=== PATIENT | female | born 1985 | race Caucasian/White ===

== ENCOUNTER 2017-06-01 09:53 | Emergency (ER) | payer BC ==
[~2017-06-01] VITALS: Ht 160 cm; Wt 130.5 kg
[~2017-06-01 09:53] MED LIST: VICODIN 5-3001 EACH PO
[2017-06-01 10:29] LABS: HEMATOCRIT 42.6 % (36.0-46.0); MCH 28.3 PG (29.0-34.0); MCHC 33.1 G/DL (30.0-36.0); MCV 85.5 FL (83-99); MEAN PLAT.VOLUME 10.2 uM^3 (9.5-12.4); PLATELET COUNT 338 K/uL (156-360); RBC DIS.WIDTH-CV 13.3 % (11.8-14.6); RBC DIS.WIDTH-SD 41.2 % (39-53); RED BLOOD COUNT 4.98 M/uL (3.80-5.20); WHITE BLOOD COUNT 10.1 K/uL (4.1-10.2)
[2017-06-01 10:51] LABS: CHLORIDE 103 mEq/L (99-109); POTASSIUM 3.9 mEq/L (3.7-5.4)
[2017-06-01 10:52] LABS: SODIUM 142 mEq/L (136-147)
[2017-06-01 10:54] LABS: GLUCOSE 120 mg/dL (70-99)
[2017-06-01 10:55] LABS: ANION GAP 11 MEQ/L (2-14)
[2017-06-01 10:57] LABS: ALKALINE PHOSPHATASE 72 IU/L (3-129); GFR ESTIMATE (CALCULATED) > 59 mL/min/
[2017-06-01 10:59] LABS: UREA NITROGEN (BUN) 9 mg/dL (9-23)
[2017-06-01 11:09] LABS: QUANTITATIVE HCG < 4.0 MIU/ML
[2017-06-01 11:14] LABS: ADD MIUA? YES; BILIRUBIN NEGATIVE; BLOOD MODERATE; COLOR YELLOW ((YELLOW)); GLUCOSE (STRIP) NEGATIVE; KETONES 20; LEUKOCYTES NEGATIVE; NITRITE NEGATIVE; PROTEIN (STRIP) NEGATIVE; SPECIFIC GRAVITY 1.014 (1.000-1.030); UROBILINOGEN 0.2 MG/DL (0.2-1.0)
[2017-06-01 11:19] LABS: BACTERIA RARE /HPF; EPITHELIAL CELLS 1+ /HPF; MUCUS TRACE /LPF; UCUL ADDED? NO; WHITE BLOOD CELLS 0-5 /HPF (0-5)
[2017-06-01 11:23] LABS: TOTAL BILIRUBIN 1.5 mg/dL (0.0-1.0)
[2017-06-01] MEDS ORDERED: CIPRO500 MG PO (13:47)
[2017-06-01] MEDS ORDERED: FLAGYL500 MG PO (13:47)
[2017-06-01] MEDS ORDERED: TYLENOL WITH C1 EACH PO (13:50)
[2017-06-01 14:16] VITALS: BP 120/63
== END 2017-06-01 14:16 | disposition home or self-care (01) ==
LOC: EME 09:53
DX: K57.32 Diverticulitis of large intestine without perforation or abscess without bleeding (principal); E11.9 Type 2 diabetes mellitus without complications; Z88.6 Allergy status to analgesic agent
CPT/HCPCS: 74176; 80053; 81003; 84702; 85027; 99281; 99284

== ENCOUNTER 2017-11-13 09:08 | Emergency (ER) | payer BC ==
[~2017-11-13] VITALS: Ht 160 cm; Wt 124.4 kg
[~2017-11-13 09:08] MED LIST changes: +CIPRO500 MG PO; +FLAGYL500 MG PO; +TYLENOL WITH C1 EACH PO
[2017-11-13 10:44] VITALS: BP 133/76
== END 2017-11-13 10:44 | disposition home or self-care (01) ==
LOC: EME 09:08
PROC: 08C Eye, Extirpation (ICD-10-PCS; principal; 2017-11-13)
DX: T15.81XA Foreign body in other and multiple parts of external eye, right eye, initial encounter (principal); W20.8XXA Other cause of strike by thrown, projected or falling object, initial encounter; Y93.H2 Activity, gardening and landscaping
CPT/HCPCS: 99281; 99283